=== PATIENT | male | born 1970 | race Caucasian/White ===

== ENCOUNTER 2018-01-24 03:18 | Emergency (ER) | payer SELFPAY ==
[~2018-01-24] VITALS: Ht 182.9 cm; Wt 72.7 kg
[2018-01-24 04:12] LABS: HEMATOCRIT 47.9 % (38.0-50.0); HEMOGLOBIN 16.9 G/DL (12.5-16.6); MCH 31.8 PG (29.0-34.0); MCHC 35.3 G/DL (30.0-36.0); PLATELET COUNT 222 K/uL (156-360); RBC DIS.WIDTH-CV 11.9 % (11.8-14.6); RBC DIS.WIDTH-SD 38.9 % (39-53); RED BLOOD COUNT 5.32 M/uL (4.00-5.50); WHITE BLOOD COUNT 7.9 K/uL (4.1-10.2)
[2018-01-24 04:17] LABS: AMPHETAMINE NEGATIVE (500 ng/mL); BARBITURATES NEGATIVE (200 ng/mL); BENZODIAZEPINES NEGATIVE (150 ng/mL); BUPRENORPHINE NEGATIVE (10 ng/mL); COCAINE NEGATIVE (150 ng/mL); METHADONE NEGATIVE (200 ng/mL); METHAMPHETAMINE NEGATIVE (500 ng/mL); OPIATES (MORPHINE) NEGATIVE (100 ng/mL); OXYCODONE NEGATIVE (100 ng/mL); PHENCYCLIDINE NEGATIVE (25 ng/mL); PROPOXYPHENE NEGATIVE (300 ng/mL); THC CANNABINOIDS PRESUMPTIVE POSITIVE (50 ng/mL); TRICYCLIC ANTIDEPRESSANTS NEGATIVE (300 ng/mL)
[2018-01-24 04:29] LABS: CHLORIDE 105 mEq/L (99-109); POTASSIUM 3.5 mEq/L (3.7-5.4); SODIUM 141 mEq/L (136-147)
[2018-01-24 04:30] LABS: GLUCOSE 112 mg/dL (70-99)
[2018-01-24 04:34] LABS: CREATININE 1.3 mg/dL (0.6-1.3); GFR ESTIMATE (CALCULATED) > 59 mL/min/ (58.99-99999); SERUM ETHYL ALCOHOL < 10 mg/dL
[2018-01-24 04:36] LABS: UREA NITROGEN (BUN) 14 mg/dL (9-23)
[2018-01-24 04:37] LABS: SALICYLATE < 5.0 MG/DL (15-30)
[2018-01-24 04:38] LABS: ACETAMINOPHEN (TYLENOL) < 10 mcg/mL (10-30)
[2018-01-24 07:58] LABS: APPEARANCE CLEAR ((CLEAR)); BILIRUBIN NEGATIVE; BLOOD NEGATIVE; COLOR YELLOW ((YELLOW)); GLUCOSE (STRIP) NEGATIVE; KETONES 20; LEUKOCYTES NEGATIVE; NITRITE NEGATIVE; PROTEIN (STRIP) 30; SPECIFIC GRAVITY 1.032 (1.000-1.030); UROBILINOGEN 0.2 MG/DL (0.2-1.0)
[2018-01-24] MEDS ORDERED: AFRIN,GENASAL D15 ML BOTH NARES (12:16)
[2018-01-24] MEDS ORDERED: IMODIUM A-D2 M2 PO (12:16)
[2018-01-24] MEDS ORDERED: ALEVE220 MG PO (12:17)
[2018-01-24 15:20] VITALS: BP 138/84
== END 2018-01-24 15:25 ==
LOC: EME 03:18
PROVIDERS: Emergency Medicine
DX: R45.851 Suicidal ideations (principal); F32.9 Major depressive disorder, single episode, unspecified; F12.20 Cannabis dependence, uncomplicated; Z04.6 Encounter for general psychiatric examination, requested by authority; Z88.8 Allergy status to other drugs, medicaments and biological substances
CPT/HCPCS: 80048; 81003; 84999; 85027; 90832; 90837; 99281; 99284; G0480